=== PATIENT | male | born 1980 | race Caucasian/White ===

== ENCOUNTER 2020-10-07 18:02 | Observation (INO) ==
[2020-10-07] MEDS ORDERED: Naloxone 0.4 MG/ML INJ IVP PRN (21:42)
[2020-10-07] MEDS ORDERED: Acetaminophen 325 MG TABLET PO PRN (21:42)
[2020-10-07] MEDS ORDERED: *HR* Promethazine 25 MG/ML VIAL IM PRN (21:42)
[2020-10-07] MEDS ORDERED: Melatonin 3 MG TABLET PO PRN (21:42)
[2020-10-07] MEDS ORDERED: *HR* HYDROcodone/Acet 5/325 mg TABLET PO PRN (21:46)
[2020-10-07] MEDS: Ringers Solution, Lactated 1,000 ML IVC SCH (22:17)
[2020-10-07] MEDS: Ondansetron 4 MG/2 ML VIAL IVP PRN (23:58)
[2020-10-07] MEDS: Ketorolac 15 MG/ML VIAL IVP PRN (23:58)
[2020-10-08 06:52] LABS: Basophils % 0.5 %; Eosinophils # 0.1 K/mcL (0.0-0.6); Hematocrit 37.7 % (37.5-50.1); Hemoglobin 13.2 g/dL (12.9-16.9); Immature Granulocytes % 0.3 % (0-4); Lymphocytes # 1.7 K/mcL (0.6-4.6); Lymphocytes % 26.1 %; Mean Corpuscular Hemoglobin 31.4 pg (28.0-33.3); Mean Corpuscular Volume 89.5 fL (83.0-100.0); Mean Platelet Volume 9.8 fL (9.4-12.4); Monocytes # 0.7 K/mcL (0.0-1.3); Monocytes % 10.6 %; Neutrophils # 3.8 K/mcL (1.6-8.9); Platelet Count 249 K/mcL (140-400); Red Blood Count 4.21 M/mcL (4.19-5.50); Red Cell Distribution Width 12.3 % (11.5-14.5); Segmented Neutrophils % 60.5 %; White Blood Count 6.4 K/mcL (4.3-11.1)
[2020-10-08 06:53] LABS: INR 1.1; Prothrombin Time 12.8 Seconds (9.4-12.1)
[2020-10-08 07:07] LABS: BUN/Creatinine Ratio 12 (6-26); Blood Urea Nitrogen 14 mg/dL (6-20); Calcium 8.9 mg/dL (8.6-10.3); Carbon Dioxide 27 mEq/L (23-29); Chloride 105 mEq/L (98-107); Glucose 85 mg/dL (70-105); Magnesium 2.1 mg/dL (1.6-2.6); Osmolality,Calculated 288 (280-300); Potassium 3.9 mEq/L (3.5-5.1); Sodium 139 mEq/L (136-145); eGFR For African Americans > 60 (> 60); eGFR For Non-African Americans > 60 (> 60)
[2020-10-08] MEDS: Ketorolac 15 MG/ML VIAL IVP PRN (07:36)
[2020-10-08] MEDS: Ondansetron 4 MG/2 ML VIAL IVP PRN (07:58)
[2020-10-08] MEDS: Ringers Solution, Lactated 1,000 ML IVC SCH (08:30)
[2020-10-08] MEDS ORDERED: Isovue-300 50ML VIAL ONE (14:45)
[2020-10-08] MEDS ORDERED: Ondansetron 4 MG/2 ML VIAL IVP PRN ×2 (15:26→18:10)
[2020-10-08] MEDS ORDERED: Promethazine 6.25 MG in Water for inj. (sterile) 20 ML IVPB PRN (15:26)
[2020-10-08] MEDS ORDERED: *HR* HYDROmorphone PF 0.5 MG/0.5 ML SYRINGE IVP PRN (15:26)
[2020-10-08] MEDS ORDERED: *HR* OxyCODONE Immed Rel 5 MG TABLET PO PRN (15:26)
[2020-10-08] MEDS ORDERED: Ondansetron 4 MG/2 ML VIAL ONE (16:19)
[2020-10-08] MEDS ORDERED: Lidocaine -MPF 2% 2 ML VIAL ONE (16:19)
[2020-10-08] MEDS ORDERED: Ketorolac 30 MG/ML VIAL ONE (16:19)
[2020-10-08] MEDS ORDERED: *HR* Midazolam HCl 2 MG/2 ML VIAL ONE (16:20)
[2020-10-08] MEDS ORDERED: *HR* Propofol 200 MG/20 ML VIAL IVP ONE (16:20)
[2020-10-08] MEDS ORDERED: *HR* FentaNYL (PF) 100 MCG/2 ML VIAL ONE (16:20)
[2020-10-08] MEDS ORDERED: Naloxone 0.4 MG/ML INJ IVP PRN (18:10)
[2020-10-08] MEDS ORDERED: *HR* OxyCODONE/APAP 5/325 TABLET PO PRN (18:10)
[2020-10-08] MEDS ORDERED: *HR* HYDROcodone/Acet 5/325 mg TABLET PO PRN (18:10)
[2020-10-08] MEDS ORDERED: Melatonin 3 MG TABLET PO PRN (18:10)
[2020-10-08] MEDS ORDERED: *HR* Promethazine 25 MG/ML VIAL IM PRN (18:10)
[2020-10-08] MEDS ORDERED: Ketorolac 15 MG/ML VIAL IVP PRN (18:10)
[2020-10-08] MEDS ORDERED: Acetaminophen 325 MG TABLET PO PRN (18:10)
[2020-10-08] MEDS ORDERED: *HR* Belladonna Alkaloids/Opium 30 MG RECTAL SUPPOSITORY RC PRN (18:10)
[2020-10-09 06:23] VITALS: BP 109/71; PULSE 70; TEMP 97.7; O2SAT 95
[2020-10-09 09:33] LABS: BUN/Creatinine Ratio 16 (6-26); Blood Urea Nitrogen 18 mg/dL (6-20); Calcium 9.4 mg/dL (8.6-10.3); Carbon Dioxide 29 mEq/L (23-29); Chloride 102 mEq/L (98-107); Glucose 157 mg/dL (70-105); Osmolality,Calculated 293 (280-300); Potassium 4.6 mEq/L (3.5-5.1); Sodium 139 mEq/L (136-145); eGFR For African Americans > 60 (> 60); eGFR For Non-African Americans > 60 (> 60)
[2020-10-12 08:53] LABS: Calculi Mass 61 mg
== END 2020-10-09 11:15 | disposition home or self-care (01) ==
LOC: 3BNU → SUATTDRO 20:59
PROVIDERS: ADMIT Internal Medicine; ATTEND Registered Nurse